=== PATIENT | female | born 1945 | race African-American/Black ===

== ENCOUNTER 2016-11-21 01:55 | Inpatient (IN) | payer MEDICARE ==
[2016-11-21] MEDS ORDERED: diphenhydrAMINE 50 MG/ML VIAL ONE (04:07)
[2016-11-21] MEDS ORDERED: Famotidine/PF 20 mg/2ml Vial ONE (04:07)
[2016-11-21] MEDS ORDERED: methylPREDNISolone Sod Succ/PF 125 MG/2 ML VIAL ONE (04:07)
[2016-11-21 06:27] LABS: Troponin I Less than 0.010 ng/mL (< 0.028)
--- NOTE | 2016-11-21 08:30 | CT ---
PRELIMINARY REPORT/[facility]/EMERGENCY AFTER HOURS PROCEDURE: EXAM: CT Angiography Chest With Intravenous Contrast EXAM DATE/TIME: Exam ordered 11/21/2016 4:45 AM CLINICAL HISTORY: 71 years old, female; Pain and signs and symptoms; Shortness of breath; Chest pain; Patient HX: Er 1 4; Pt reports watching tv this evening at 2230 and became short of breath and noticed her right hand felt "like it was asleep". Pt C/O chest pain. TECHNIQUE: Axial computed tomographic angiography images of the chest with intravenous contrast using pulmonary embolism protocol. CONTRAST: 70 mL of ISOVUE 370 administered intravenously. COMPARISON: No relevant prior studies available. FINDINGS: Pulmonary arteries: There is no evidence of peripheral filling defects within the pulmonary arterial circulation to suggest pulmonary embolism. The pulmonary arteries are not enlarged. Aorta: The aorta demonstrates mild atherosclerotic calcification. No thoracic aortic aneurysm. Lungs: There is subpleural atelectasis of the dependent portions of the lungs. No mass. Pleural space: Normal. No significant effusion. No pneumothorax. Heart: The cardiac structures are normal. No significant pericardial effusion. No evidence of RV dys function. Bones/joints: No acute fracture. No dislocation. Soft tissues: Normal. Lymph nodes: Normal. No enlarged lymph nodes. Liver: There is a diffuse decrease in hepatic parenchymal density, consistent with fatty infiltratio n. IMPRESSION: There is no CT evidence of acute pulmonary embolism. Thank you for allowing us to participate in the care of your patient. Dictated and Authenticated by: Eugene Wolf MD 11/21/2016 5:25 AM Central Time ([place] \\T\\ Cristina) FINAL REPORT CONTRAST ENHANCED CTA CHEST: HISTORY: Shortness of breath. TECHNIQUE: Contrast-enhanced CTA of the chest is performed. Axial images are obtained after administration of IV contrast. Two-D and 3D reconstruction images are performed. FINDINGS: Contrast-enhanced CTA chest demonstrates prominence and symmetric enlargement of the thyroid gland. This does somewhat narrow the diameter of the trachea. This may represent diffuse thyroid enlargem ent. Correlate with sonography electively. No evidence of pulmonary parenchymal masses or lesions seen. No evidence of lymphadenopathy is seen . Some area of scar is seen in the right middle lobe. Osseous structures are unremarkable. No evidence of filling defect seen in the pulmonary arteries to suggest pulmonary emboli. Some nuris nary artery calcifications are seen. There is an area of subtle hypodensity in the posterior aspect of the right kidney. This may repres ent a cyst or a possible right renal mass. Correlate with renal sonography. IMPRESSION: 1. 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 2. Possible right renal mass or cyst. 3. No evidence of pulmonary emboli. 4. Coronary artery calcifications. 5. I concur with the dictation from [facility]. No evidence of pulmonary emboli is seen. POS: ZHANG
--- NOTE | 2016-11-21 11:04 | PDOC.EVN ---
Event Note - Event Note Event Note: Patient seen and examined. Full code. DPOA - self
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
[2016-11-21] MEDS ORDERED: ISOVUE-370 76%-LOCM 1 ML ONE (12:30)
--- NOTE | 2016-12-07 13:44 | EKG ---
Test Reason : Blood Pressure : / mmHG Vent. Rate : 063 BPM Atrial Rate : 063 BPM P-R Int : 224 ms QRS Dur : 090 ms QT Int : 430 ms P-R-T Axes : 079 018 061 degrees QTc Int : 440 ms Sinus rhythm with 1st degree A-V block Nonspecific ST and T wave abnormality Abnormal ECG Confirmed by JULIA ESTEVES, NATTY Catalan ([id number]), film and video editor FROY RODRIGUEZ ([id number]) on 12/07/2016 1:44:10 PM Referred By: JULIA Confirmed By:ANTTY DUMONT MD
== END 2016-11-22 10:05 | disposition home or self-care (01) | DRG 192 ==
LOC: ERS 01:55 → ERHOLD 03:45
PROVIDERS: ADMIT Internal Medicine; ATTEND Internal Medicine
DX: J44.0 Chronic obstructive pulmonary disease with (acute) lower respiratory infection (principal); E11.22 Type 2 diabetes mellitus with diabetic chronic kidney disease; N18.3 Chronic kidney disease, stage 3 (moderate); I12.9 Hypertensive chronic kidney disease with stage 1 through stage 4 chronic kidney disease, or unspecified chronic kidney disease; J44.1 Chronic obstructive pulmonary disease with (acute) exacerbation; J20.9 Acute bronchitis, unspecified; R79.1 Abnormal coagulation profile; E03.9 Hypothyroidism, unspecified; F41.0 Panic disorder [episodic paroxysmal anxiety]; F17.210 Nicotine dependence, cigarettes, uncomplicated; E04.9 Nontoxic goiter, unspecified; E78.5 Hyperlipidemia, unspecified
CPT/HCPCS: 36415; 71275; 84484; 93005; 96361; 96374; 96375; 96376; J1200; J2920; J2930; S0028

== ENCOUNTER 2021-05-04 18:36 | Inpatient (IN) | payer MEDICARE ==
[2021-05-04] MEDS ORDERED: Pantoprazole 40 MG VIAL ONE ×2 (19:30→19:54)
[2021-05-04 19:52] LABS: Hemoglobin 5.8 g/dL (12.0-16.0); Mean Corpuscular HGB CONC 29.2 g/dL (32.0-36.0); Mean Corpuscular Hemoglobin 19.4 pg (27.0-31.0); Mean Corpuscular Volume 66.3 fL (78.0-98.0); Mean Platelet Volume 9.6 fL (7.4-10.4); Platelet Count 380 thou/uL (130-400); RBC Distribution Width 17.8 % (11.5-14.5); Red Blood Cell (RBC) Count 2.98 mill/uL (4.20-5.40)
[2021-05-04 20:01] LABS: ALT (SGPT) 9 U/L (8-55); AST (SGOT) 12 U/L (5-34); Albumin 3.9 g/dL (3.4-4.8); Alkaline Phosphatase 61 U/L (40-110); Anion Gap 6 mmol/L (10-20); BUN (Urea Nitrogen) 17 mg/dL (9.8-20.1); Bilirubin, Total 0.2 mg/dL (0.2-1.2); Calc. Creatinine Clearance 0 mL/min (70-130); Calcium 9.1 mg/dL (7.8-10.44); Carbon Dioxide 29 mmol/L (23-31); Chloride 108 mmol/L (98-107); Globulin 2.9 g/dL (2.4-3.5); Glucose 89 mg/dL (83-110); Potassium 3.8 mmol/L (3.5-5.1); Protein, Total 6.8 g/dL (5.8-8.1); Sodium 139 mmol/L (136-145)
[2021-05-04 20:08] LABS: Anisocytosis MODERATE=16-30 cells (100X) (0-5/hpf); Elliptocytes SLIGHT = 2-5 cells (100X) (0-1/hpf); Eosinophils 5 % (0-10); Hypochromia MODERATE=16-30 cells (100X) (0-5/hpf); Lymphocytes 32 % (21-51); MDiff Complete? YES; Microcytosis SLIGHT = 6-15 cells (100X) (0-5/hpf); Monocytes 6 % (0-10); Neutrophil 57 % (42-75); Nucleated RBC 3 % (0); Reflex for Review?? YES; Schistocytes SLIGHT = 2-5 cells (100X) (0-1/hpf); Target Cells SLIGHT = 2-5 cells (100X) (0-1/hpf); Tear Drops SLIGHT = 2-5 cells (100X) (0-1/hpf); White Blood Cell (WBC) Count 6.3 thou/uL (4.8-10.8)
[2021-05-04] MEDS ORDERED: Ondansetron PF 4 MG/2 ML Vial IVP PRN (20:15)
[2021-05-04] MEDS ORDERED: Acetaminophen 325 MG TAB PO PRN (20:15)
[2021-05-04] MEDS ORDERED: HumaLOG 300 UNITS/3 ML VIAL SC PRN ×2 (20:15)
[2021-05-04] MEDS ORDERED: Zolpidem Tartrate 5 MG TAB PO PRN (20:15)
[2021-05-04] MEDS ORDERED: Dextrose 50% Abboject 50 ML SYRINGE SLOW IVP PRN (20:15)
[2021-05-04] MEDS ORDERED: Dextrose 5% in Water 1,000 ML IV PRN (20:15)
[2021-05-04] MEDS ORDERED: HYDROcodone/Acetaminophen 5/325 mg Tablet PO PRN (20:15)
[2021-05-04] MEDS: Nicotine 14 MG PATCH TD SCH (22:00)
[2021-05-04] MEDS: Sodium Chloride 0.9% 1,000 ML IV SCH (22:00)
[2021-05-04 22:06] LABS: Iron 13 ug/dL (50-170); Iron Binding Capacity, Total 421 mcg/dL (265-497)
[2021-05-05 01:48] VITALS: BMI 24.9
[2021-05-05] MEDS: Pantoprazole 40 MG VIAL IVP SCH ×2 (08:30→21:05)
[2021-05-05 13:02] LABS: #Basophils 0.1 thou/uL (0.0-0.2); #Eosinphils 0.1 thou/uL (0.0-0.7); #Lymphocytes 1.6 thou/uL (1.20-3.40); #Monocytes 0.6 thou/uL (0.11-0.59); #Neutrophils 3.9 thou/uL (1.40-6.50); %Eosinophils 1.9 % (0.0-10.0); %Lymphocytes 25.6 % (21.0-51.0); %Monocytes 9.1 % (0.0-10.0); %Neutrophils 61.5 % (42.0-75.0); Hemoglobin 6.9 g/dL (12.0-16.0); Mean Corpuscular HGB CONC 29.3 g/dL (32.0-36.0); Mean Corpuscular Hemoglobin 20.7 pg (27.0-31.0); Mean Corpuscular Volume 70.5 fL (78.0-98.0); Mean Platelet Volume 9.5 fL (7.4-10.4); Platelet Count 349 thou/uL (130-400); RBC Distribution Width 20.3 % (11.5-14.5); Red Blood Cell (RBC) Count 3.33 mill/uL (4.20-5.40); White Blood Cell (WBC) Count 6.3 thou/uL (4.8-10.8)
[2021-05-05 13:37] LABS: ALT (SGPT) 7 U/L (8-55); AST (SGOT) 11 U/L (5-34); Albumin 3.6 g/dL (3.4-4.8); Alkaline Phosphatase 59 U/L (40-110); Anion Gap 16 mmol/L (10-20); BUN (Urea Nitrogen) 13 mg/dL (9.8-20.1); Bilirubin, Total 0.6 mg/dL (0.2-1.2); Calc. Creatinine Clearance 61 mL/min (70-130); Carbon Dioxide 17 mmol/L (23-31); Chloride 109 mmol/L (98-107); Globulin 2.7 g/dL (2.4-3.5); Glucose 77 mg/dL (83-110); Potassium 3.9 mmol/L (3.5-5.1); Protein, Total 6.3 g/dL (5.8-8.1); Sodium 138 mmol/L (136-145)
[2021-05-05] MEDS: Sodium Chloride 0.9% 1,000 ML IV SCH (14:22)
[2021-05-05] MEDS ORDERED: Ferrous Sulfate 325 MG TAB PO SCH (16:00)
[2021-05-05] MEDS ORDERED: Alogliptin 6.25 MG TAB PO SCH (16:15)
[2021-05-05] MEDS ORDERED: Losartan 25 MG TAB PO SCH (16:15)
[2021-05-05 17:06] LABS: Hemoglobin A1c 5.5 % (4.0-6.0)
[2021-05-05] MEDS: Ferrous Sulfate 325 MG TAB PO SCH (17:57)
[2021-05-05] MEDS: Nicotine 14 MG PATCH TD SCH (21:05)
[2021-05-06] MEDS ORDERED: Levothyroxine Sodium 25 MCG TAB PO SCH (06:00)
[2021-05-06 07:12] LABS: Hemoglobin 7.8 g/dL (12.0-16.0); Mean Corpuscular HGB CONC 29.4 g/dL (32.0-36.0); Mean Corpuscular Hemoglobin 20.6 pg (27.0-31.0); Mean Corpuscular Volume 70.2 fL (78.0-98.0); Mean Platelet Volume 10.1 fL (7.4-10.4); Platelet Count 395 thou/uL (130-400); RBC Distribution Width 20.8 % (11.5-14.5); Red Blood Cell (RBC) Count 3.76 mill/uL (4.20-5.40)
[2021-05-06] MEDS: Ferrous Sulfate 325 MG TAB PO SCH (08:00)
[2021-05-06] MEDS: Pantoprazole 40 MG VIAL IVP SCH (08:01)
[2021-05-06] MEDS ORDERED: Losartan 25 MG TAB PO SCH (09:00)
[2021-05-06] MEDS ORDERED: Alogliptin 6.25 MG TAB PO SCH (09:00)
[2021-05-06 09:15] VITALS: BP 134/68; TEMP 98.2
[2021-05-06] MEDS ORDERED: Metoprolol Tartrate 50 MG TAB PO SCH ×2 (10:00→21:00)
== END 2021-05-06 13:15 | disposition home or self-care (01) | DRG 812 ==
LOC: ERS 18:36 → T4-B 20:21
PROVIDERS: ADMIT Internal Medicine; ATTEND Internal Medicine
PROC: 30233N1 Transfusion of Nonautologous Red Blood Cells into Peripheral Vein, Percutaneous Approach (ICD-10-PCS; principal; 2021-05-04)
DX: D50.9 Iron deficiency anemia, unspecified (principal); E11.9 Type 2 diabetes mellitus without complications; E03.9 Hypothyroidism, unspecified; F17.210 Nicotine dependence, cigarettes, uncomplicated; N20.0 Calculus of kidney; I10 Essential (primary) hypertension; Z90.710 Acquired absence of both cervix and uterus; Z88.5 Allergy status to narcotic agent; Z88.2 Allergy status to sulfonamides; Z88.8 Allergy status to other drugs, medicaments and biological substances; E78.5 Hyperlipidemia, unspecified
CPT/HCPCS: 36415; 36416; 36430; 74176; 80053; 80061; 82274; 82607; 82728; 82746; 83036; 83540; 83550; 84443; 85025; 85027; 85060; 86850; 86900; 86901; C9113; J7050; P9016